=== PATIENT | female | born 1940 | race Caucasian/White ===

== ENCOUNTER 2018-09-03 05:11 | Emergency (ER) | payer MEDICARE ==
[~2018-09-03] VITALS: Ht 167.6 cm; Wt 97.0 kg
[2018-09-03 09:11] VITALS: BP 170/82
== END 2018-09-03 09:13 | disposition home or self-care (01) ==
LOC: ED 06:18
DX: R11.10 Vomiting, unspecified (principal); R10.32 Left lower quadrant pain; E11.9 Type 2 diabetes mellitus without complications; K21.9 Gastro-esophageal reflux disease without esophagitis; Z86.718 Personal history of other venous thrombosis and embolism
CPT/HCPCS: 36415; 74177; 80053; 81001; 83605; 83690; 85025; 96361; 96374; 99284; J2405; J7030; Q9967